=== PATIENT | female | born 1995 | race Caucasian/White ===

== ENCOUNTER → 2017-03-30 | Outpatient (CLI) | payer OTHER ==
--- NOTE | ~2017-03-30 | CR184 ---
[facility] A Service of [facility] & [facility] RADIOLOGY TEXT RESULTS PATIENT: DINESH HOANG LOCATION: [facility] : [birth year] UNIT #: [id number] AGE: [address]: CAREY BYNUM MD SEX: F ORDER DR: [id number] [facility] [address] [place], [place] [address] [id number] O MR#: [id number] Acc #: [id number] NAME: DINESH HOANG : 1995 SEX: F STUDY DATE/TIME: 03/30/2017 15:55 UNIT: [facility] ROOM: STUDY DESCRIPTION: CR Lumbar Spine Min 4 Views Attending Physician: Carey Bynum M.D. Referring Physician: Carey Bynum M.D. Ordering Physician: Carey Bynum M.D. Primary Care Physician: Carey Bynum M.D. MEDICAL IMAGING REPORT This report is preliminary unless electronic signature is present EXAM Lumbar spine 5-view series INDICATION Low back pain for a week. FINDINGS 5 views of the lumbar spine were obtained. The vertebral bodies have normal alignment and the disc spaces are normal. There are no pars defects. IMPRESSION Normal 5-view lumbar spine series. Dictated by... Tato Waggoner M.D. THIS IS AN ELECTRONICALLY VERIFIED REPORT Tato Waggoner M.D. at 03/31/2017 12:26 PM FARHEEN/bryan TD: 03/31/2017 01:40 JOB #: [id number] MEDICAL IMAGING REPORT Page 1 of 1 COPY
== END | disposition home or self-care (01) ==
LOC: CRAD 15:33
DX: M54.5 Low back pain (principal)
CPT/HCPCS: 72110